=== PATIENT | male | born 1965 | race Caucasian/White ===

== ENCOUNTER → 2017-09-11 | Outpatient (CLI) | payer OTHER ==
[~2017-09-11] MED LIST: BYETTA PEN 51 PENIN1; CIPRO500 MG PO; CIPROFLOXACIN500 M1 PO; COLACE100 MG PO; FLOMAX0.4 MG PO; HYDROCODON-ACE1 EAC7 PO; INVOKANA100 MG PO; KEFLEX500 MG PO; LANTUS SUBQ; LANTUS100 UNIT/M SUBQ; LASIX 40 MG TAB40 M2 PO; LEVSIN0.125 MG PO; LEVSIN0.125 MG SUBLING; LIPITOR10 MG PO; LIPITOR40 MG PO; MAGOX 400400 MG PO; METFORMIN HCL500 MG PO; METOLAZONE 2.52.5 M1 PO; NORCO 5-325 TA1 EACH PO; NOVOLOG100 UNIT/1 SUBQ; NOVOLOG100 UNIT/M SUBQ; PHENAZOPYRIDIN200 M2 PO; POLYMYXIN B/TMP10 ML OP; POTASSIUM20 PO; TRAMADOL 50 MG50 MG PO; VICTOZA0.6 MG/0.1
[2017-09-11 09:36] LABS: MCH 26.1 pg (26.0-34.0); MCHC 33.2 g/dL (28.0-37.0); MCV 78.5 fL (80.0-100.0); MPV 8.4 fl. (7.2-11.1); RBC 5.73 mil/uL (4.50-6.00); RDW-CV 15.4 % (10.5-14.5)
[2017-09-11 09:53] LABS: ALBUMIN 3.6 g/dL (3.4-5.0); ALKALINE PHOSPHATASE 131 U/L (46-116); ANION GAP 6 mmol/L (7-16); BUN 17 mg/dL (7-18); CALCIUM 9.6 mg/dL (8.5-10.1); CHLORIDE 99 mmol/L (98-107); CHOLESTEROL 108 mg/dL (<200); CO2 34 mmol/L (21-32); CREATININE 0.9 mg/dL (0.6-1.3); GLUCOSE 180 mg/dL (70-99); HDL CHOLESTEROL 31 mg/dL (>40); LDL CHOLESTEROL 62 mg/dL (<100); POTASSIUM 3.7 mmol/L (3.5-5.1); SERUM ASSESSMENT Clear; SGOT 20 U/L (15-37); SGPT 51 U/L (30-65); SODIUM 139 mmol/L (136-145); TC:HDL 3.5 Ratio (Not establshd); TOTAL BILIRUBIN 0.8 mg/dL (<0.1-1.0); TOTAL PROTEIN 7.4 g/dL (6.4-8.2); TRIGLYCERIDE 75 mg/dL (<150); VLDL 15 mg/dL (<40)
[2017-09-11 21:11] LABS: GLYCOHEMOGLOBIN (HGB A1C) 7.3 % (4.8-5.6)
== END ==
LOC: M.LAB 08:58
PROVIDERS: General Practice
DX: E11.8 Type 2 diabetes mellitus with unspecified complications (principal); E78.5 Hyperlipidemia, unspecified; N18.9 Chronic kidney disease, unspecified; E55.9 Vitamin D deficiency, unspecified; E11.65 Type 2 diabetes mellitus with hyperglycemia

== ENCOUNTER 2017-09-15 20:38 | Emergency (ER) | payer OTHER ==
[~2017-09-15] VITALS: Ht 182.9 cm; Wt 180.1 kg
[~2017-09-15 20:38] MED LIST changes: -BYETTA PEN 51 PENIN1; -CIPRO500 MG PO; -FLOMAX0.4 MG PO; -HYDROCODON-ACE1 EAC7 PO; -LEVSIN0.125 MG PO; -LEVSIN0.125 MG SUBLING; -PHENAZOPYRIDIN200 M2 PO; -VICTOZA0.6 MG/0.1
[2017-09-15 20:45] VITALS: BP 156/77
[2017-11-11] MEDS ORDERED: VICTOZA0.6 MG/0.1 (09:51)
[2017-11-11] MEDS ORDERED: BYETTA PEN 51 PENIN1 (09:52)
== END 2017-09-15 21:12 | disposition home or self-care (01) ==
LOC: M.ERS 20:38
DX: H11.32 Conjunctival hemorrhage, left eye (principal); E11.9 Type 2 diabetes mellitus without complications; Z90.49 Acquired absence of other specified parts of digestive tract; Z85.038 Personal history of other malignant neoplasm of large intestine; Z79.4 Long term (current) use of insulin

== ENCOUNTER 2017-11-04 06:08 | Inpatient (IN) | payer OTHER ==
[~2017-11-04] VITALS: Ht 182.9 cm; Wt 173.7 kg
[2017-11-04 06:12] VITALS: BP 150/75
[2017-11-04 06:45] LABS: ABSOLUTE BASOPHILS 0.1 thou/uL (0.0-0.2); ABSOLUTE EOSINOPHILS 0.1 thou/uL (0.0-0.7); ABSOLUTE LYMPHOCYTES 1.7 thou/uL (0.8-5.3); ABSOLUTE MONOCYTES 0.8 thou/uL (0.0-1.2); ABSOLUTE NEUTROPHILS 7.8 thou/uL (1.6-8.1); BASOPHILS 0.7 %; EOSINOPHILS 0.9 %; HEMATOCRIT 46.1 % (42.0-52.0); HEMOGLOBIN 15.3 gm/dL (14.0-18.0); LYMPHOCYTES 16.1 %; MCH 26.3 pg (26.0-34.0); MCHC 33.2 g/dL (28.0-37.0); MONOCYTES 7.3 %; MPV 8.5 fl. (7.2-11.1); NUCLEATED RBCS 0 /100WBC; PLATELET COUNT* 286 thou/uL (150-400); RBC 5.84 mil/uL (4.50-6.00); RDW-CV 15.3 % (10.5-14.5); WBC 10.4 thou/uL (4.0-11.0)
[2017-11-04 06:50] LABS: URINE BILIRUBIN NEGATIVE (Negative); URINE BLOOD 3+ (Negative); URINE CLARITY CLOUDY; URINE COLOR RED; URINE GLUCOSE-RANDOM NEGATIVE (Negative); URINE KETONES NEGATIVE (Negative); URINE LEUKOCYTES-REFLEX NEGATIVE (Negative); URINE NITRITE-REFLEX NEGATIVE (Negative); URINE PROTEIN 1+ (Negative); URINE SPECIFIC GRAVITY 1.025 (1.005-1.030); URINE UROBILINOGEN 0.2 E.U./dl (0.2-1.0)
[2017-11-04 06:56] LABS: BACTERIA-REFLEX 1-9 Few /HPF (None Seen); CASTS None Seen /LPF (None Seen); MUCUS None Seen strn/LPF (None Seen); SQUAMOUS 0-3 Few /LPF (0-3); URINE RBC >20 Many /HPF (0-2); URINE WBC-REFLEX 0-5 Rare /HPF (0-5)
[2017-11-04 06:57] LABS: CRYSTALS None Seen /LPF (None Seen)
--- NOTE | 2017-11-04 06:59 | NUR ---
PT BACK FROM CT AT THIS TIME
[2017-11-04 07:12] LABS: CREATININE 0.8 mg/dL (0.6-1.3); POTASSIUM 3.6 mmol/L (3.5-5.1)
[2017-11-04 07:17] LABS: ALBUMIN 3.8 g/dL (3.4-5.0); TOTAL BILIRUBIN 0.6 mg/dL (<0.1-1.0); TOTAL PROTEIN 6.9 g/dL (6.4-8.2)
[2017-11-04 10:44] VITALS: BP 138/69
[2017-11-04 11:00] VITALS: BP 128/68
--- NOTE | 2017-11-04 11:10 | NUR ---
ASSUMED CARE OF PATIENT AT THIS TIME AFTER TRANSFER TO ROOM 103 FROM EMERGENCY DEPARTMENT. PATIENT AWAKE, ALERT, AND ORIENTED APPROPRIATELY. NURSING WILL CONTINUE TO MONITOR.
[2017-11-04 16:02] VITALS: BP 131/68
--- NOTE | 2017-11-04 17:59 | NUR ---
PATIENT HAS REMAINED ALERT AND ORIENTED APPROPRIATELY. GIVEN PRN MEDICATIONS FOR PAIN WELL SCHEDULED MEDICATIONS THIS SHIFT, SEE EMAR FOR DOCUMENTATION. DENIES NEEDS AT THIS TIME. CALL LIGHT WITHIN REACH. NURSING WILL CONTINUE TO MONITOR.
[2017-11-04 20:00] VITALS: BP 119/57
[2017-11-05 05:05] LABS: HEMATOCRIT 41.7 % (42.0-52.0); HEMOGLOBIN 13.9 gm/dL (14.0-18.0); MCH 25.9 pg (26.0-34.0); MCHC 33.2 g/dL (28.0-37.0); MCV 78.1 fL (80.0-100.0); MPV 9.2 fl. (7.2-11.1); RBC 5.34 mil/uL (4.50-6.00); WBC 11.7 thou/uL (4.0-11.0)
--- NOTE | 2017-11-05 05:09 | NUR ---
ASSUMED CARE OF PT AT 1900 ALERT AND ORIENTED X4 VS AND ASSESSMENT STABLE. PT HAD PAIN MEDS TWICE THIS SHIFT AND STAYED UP MOST OF THE NIGHT WATCHING MOVIES ON HIS TABLET. PT DENIED ANY OTHER COMPLAINTS. WILL CONTINUE PLAN OF CARE.
[2017-11-05 05:28] LABS: CALCIUM 8.3 mg/dL (8.5-10.1); CREATININE 1.1 mg/dL (0.6-1.3)
[2017-11-05 07:54] VITALS: BP 122/62
[2017-11-05 10:51] VITALS: BP 122/62
--- NOTE | 2017-11-05 13:20 | NUR ---
ASSUMED CARE OF PATIENT AFTER REPORT THIS MORNING. PATIENT AWAKE, ALERT, AND ORIENTED APPROPRIATELY. PHYSICAL ASSESSMENT COMPLETED AND CHARTED. COMPLAINED OF PAIN. GIVEN PRN AND SCHEDULED MEDICATIONS, SEE EMAR FOR DOCUMENTATION. VITAL SIGNS STABLE. OXYGEN SATURATION WITHIN NORMAL LIMITS ON ROOM AIR. PATIENT IS UP AD BETTY. USES CALL LIGHT APPROPRIATELY. HAS BEEN NPO SINCE MIDNIGHT FOR PROCEDURE WHICH PATIENT IS OFF UNIT FOR AT THIS TIME. NURSING WILL CONTINUE TO MONITOR WHEN PATIENT RETURNS.
--- NOTE | 2017-11-05 14:27 | NUR ---
PATIENT RETURNED TO ROOM AT 1420 FROM PACU. AWAKE, ALERT, AND ORIENTED APPROPRIATELY. COMPLAINING OF CRAMPING TO ABDOMEN. RATES IT 2/10. DENIES NEEDS. USING URINAL. CO2 MONITOR INTACT AND VALUES APPROPRIATE. CALL LIGHT WITHIN REACH. NURSING WILL CONTINUE TO MONITOR.
[2017-11-05] MEDS ORDERED: HYDROCODON-ACE1 EAC7 PO (14:49)
[2017-11-05] MEDS ORDERED: CIPRO500 MG PO (14:49)
[2017-11-05] MEDS ORDERED: PHENAZOPYRIDIN200 M2 PO (14:49)
[2017-11-05] MEDS ORDERED: FLOMAX0.4 MG PO (14:49)
[2017-11-05] MEDS ORDERED: LEVSIN0.125 MG SUBLING (14:49)
[2017-11-05 15:04] VITALS: BP 139/66
--- NOTE | 2017-11-05 15:37 | NUR ---
SHORTLY AFTER RETURNING TO ROOM PATIENT BEGAN COMPLAINING OF NAUSEA AND DRY HEAVING, COMPLAINING OF PAIN TO ABDOMEN. GIVEN PRN IV MEDICATIONS, SEE EMAR FOR DOCUMENTATION. RESTARTED IV FLUIDS TO LEFT AC SPACE. BED ALARM ON. CALL LIGHT WITHIN REACH. CO2 MONITOR INTACT. NURSING WILL CONTINUE TO MONITOR.
--- NOTE | 2017-11-05 17:21 | NUR ---
PATIENT REMAINS ALERT AND ORIENTED APPROPRIATELY. FEELING MUCH BETTER AT THIS TIME. NOT COMPLAINING OF SEVERE PAIN OR NAUSEA ANYMORE. EATING DINNER. WILL START PO PAIN MEDICATIONS. PATIENT STATES HE WANTS TO STAY TONIGHT TO MAKE SURE PAIN STAYS UNDER CONTROL. DENIES NEEDS. CALL LIGHT WITHIN REACH. NURSING WILL CONTINUE TO MONITOR.
[2017-11-05 20:00] VITALS: BP 130/57
[2017-11-06 04:27] LABS: CALCIUM 8.3 mg/dL (8.5-10.1); CREATININE 1.1 mg/dL (0.6-1.3); POTASSIUM 3.6 mmol/L (3.5-5.1)
[2017-11-06 04:34] LABS: HEMATOCRIT 39.1 % (42.0-52.0); MCHC 33.3 g/dL (28.0-37.0); MCV 77.9 fL (80.0-100.0); MPV 8.9 fl. (7.2-11.1); RBC 5.02 mil/uL (4.50-6.00); RDW-CV 15.4 % (10.5-14.5); WBC 11.1 thou/uL (4.0-11.0)
--- NOTE | 2017-11-06 04:53 | NUR ---
PATIENT HAS REMAINED ALERT AND ORIENTED X 4 THROUGHOUT THE SHIFT AND RESTING QUIETLY ON HOURLY ROUNDS. MEDICATED WITH ORAL PAIN MEDS X 2 OVERNIGHT TO GOOD EFFECT. URINE PINK TO RED TINGED WITH SOME CLEARING THIS AM. NO STONES SEEN WITH STRAINING. UP INDEPENDENTLY IN THE ROOM. VITAL SIGNS STABLE. ANTICIPATING DISCHARGE TODAY. CONTINUE TO MONITOR.
[2017-11-06 07:44] VITALS: BP 127/55
[2017-11-06 09:34] VITALS: BP 127/55
[2017-11-06] MEDS ORDERED: LEVSIN0.125 MG PO (10:17)
--- NOTE | 2017-11-06 11:35 | NUR ---
ASSUMED CARE OF PATIENT AFTER MORNING REPORT. ALERT AND ORIENTED X4. ASSESSMENT COMPLETED AND CHARTED. VSS ON ROOM AIR. PATIENT HAD NO COMPLAINTS OF PAIN OR NAUSEA. FLUIDS AND ANTIBIOTICS INFUSED ORDERED. PATIENT DISCHARGED AT 1125. ALL PERSONAL BELONGINGS LEFT WITH PATIENT. PRESCRIPTIONS AND SICHARGE INFORMATION SENT WITH PATIENT UPON DISCHARGE.
--- NOTE | 2017-11-06 15:50 | CON ---
[address] [address] CONSULTATION Name: IKER HAYWOOD Room: [address]#: [id number] Admission: 11/04/17 Attend Phys: Carmen Thompson MD Discharge: 11/06/17 Date of : 65 Report #: [id number] THIS REPORT FOR: //name// CC: Carmen Bonilla DATE OF SERVICE: 11/04/2017 REASON FOR CONSULTATION: Left ureteral stone. HISTORY OF PRESENT ILLNESS: The patient is a 52-year-old male who presented to the Emergency Room today with severe left flank pain that began this morning. He has no history of prior stones. He denies any dysuria, hematuria or fever. He denies any nausea or vomiting. PAST MEDICAL HISTORY: Includes colon cancer, diabetes, small-bowel obstruction. PAST SURGICAL HISTORY: Includes colectomy for colon cancer, cholecystectomy, appendectomy. FAMILY HISTORY: Noncontributory. SOCIAL HISTORY: The patient has never smoked, drank or done drugs. 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 ALLERGIES: None. MEDICATIONS AT HOME: Metformin, potassium chloride, Lasix, docusate, insulin, metolazone and atorvastatin. Inpatient medication record is reviewed. REVIEW OF SYSTEMS: A 12-point review of systems was performed and is negative except as noted above in HPI. PHYSICAL EXAMINATION: VITAL SIGNS: Temperature is 36.6. He has been afebrile since admission, pulse is 80, blood pressure is 131/68, respirations 16. GENERAL: He is a well-developed, well-nourished, morbidly obese male in no acute distress. He is alert and oriented. HEENT: Normocephalic, atraumatic. RESPIRATIONS: Unlabored. HEART: Regular. ABDOMEN: Soft, nontender, nondistended. BACK: He has no CVA tenderness. GENITOURINARY: He has normal phallus and testicles. Meatus is normal. EXTREMITIES: [place] [address] CONSULTATION Name: IKER HAYWOOD Room: [address]#: [id number] Admission: 11/04/17 Attend Phys: Carmen Thompson MD Discharge: 11/06/17 Date of : 65 Report #: [id number] LABORATORY DATA: White count 10.4, hemoglobin 15.3, platelets 286. BMP is normal with a creatinine of 0.8. Urinalysis showed protein, blood but was negative for leukocyte esterase, negative for nitrites. CT scan was reviewed and this revealed a proximal left ureteral stone causing mild hydronephrosis. They read this is 5 mm. I think it is probably a little smaller than that. ASSESSMENT AND PLAN: Left proximal ureteral stone. Options were discussed with the patient including medical expulsive therapy, outpatient extracorporeal shockwave lithotripsy or ureteroscopy. The patient says he is continuing to have pain tonight. Plan will be to make him n.p.o. after midnight and in the morning, we will decide if he wants to proceed with ureteroscopy, laser lithotripsy depending on his pain status. If his pain is controlled, he could theoretically be discharged home for trial of passage with Flomax and a strainer as well as pain meds. <ELECTRONICALLY SIGNED> By: Julee Chen MD 11/06/17 1550 1740 1943Julee Chen MD /nt
--- NOTE | 2017-11-06 15:52 | OP ---
[facility] [address] [place] [address] OPERATIVE REPORT Name: IKER HAYWOOD Room: [address]#: [id number] Admission: 11/04/17 Attend Phys: Carmen Thompson MD Discharge: 11/06/17 Date of : 65 Report #: [id number] THIS REPORT FOR: //name// CC: Carmen Bonilla DATE OF SERVICE: 11/05/2017 PREOPERATIVE DIAGNOSIS: Left proximal ureteral stone. POSTOPERATIVE DIAGNOSIS: Left proximal ureteral stone. PROCEDURES: Cystourethroscopy, left retrograde pyelogram, left ureteroscopy and left ureteral stent placement (6 x 28). SURGEON: Julee Chen M.D. ANESTHESIA: General. ESTIMATED BLOOD LOSS: None. COMPLICATIONS: None. SPECIMENS: None. INDICATION FOR PROCEDURE: The patient is a 52-year-old male who presented with a left 4-5 mm proximal stone. He has been unable to get his pain under control and therefore opted to proceed with ureteroscopy. He does understand the risks of procedure including but not limited to infection, bleeding, injury to the urethra, bladder, ureter, need for secondary procedures, stent pain, cardiopulmonary complications. He voiced understanding and wishes to proceed. DESCRIPTION OF PROCEDURE: After informed consent was obtained, the patient was taken to the operating suite and placed supine. After induction of general anesthesia, he was placed in dorsal lithotomy position, genitalia prepped and draped in standard fashion. Rigid cystoscopy was attempted, but his meatus would not accommodate the scope. Therefore, he was serially dilated from 16 to 24 Israeli with the Mami's without difficulty and the scope was able to be placed. The urethra was normal. There were no strictures. Prostate was nonobstructing. Due to his large body habitus, the angle of the scope had to be quite steep to make it into the bladder. Pancystoscopy was performed with the 70-degree lens. There were no lesions or tumors. Ureteral orifices were orthotopic in position. His left UO was fairly small. Retrograde was performed on the left side with cone tip. This revealed stone in the proximal ureter. The proximal portion of the ureter was quite narrow compared to the mid to distal portion, which was much wider. A sensor wire was placed [place] [address] OPERATIVE REPORT Name: IKER HAYWOOD Room: [address]#: [id number] Admission: 11/04/17 Attend Phys: Carmen Thompson MD Discharge: 11/06/17 Date of : 65 Report #: [id number] ureter and passed the stone without much difficulty, but I could feel this wire passing the stone in the proximal ureter. The bladder was drained, the scope was removed. Using dual lumen catheter, a second wire was placed. I attempted to thread the 07/07 ureteral access sheath over one of the wires, but this would not pass the level of the distal ureter just inside the UO without resistance and therefore, this was aborted. I attempted to thread the 11-Israeli portion to see if that would dilate any better, but same problem was encountered and therefore that was aborted. I did go ahead and thread the flexible ureteroscope over one of the wires to see if there was a stricture and it did appear that although I was able to get the scope past the area where the sheath was getting hung up in the mid ureter upwards, there was a pretty narrow segment of ureter and it would not allow passage of the ureteroscope. Therefore, this was aborted and we will have to place a stent and come back. The scope was backed out leaving the sensor wire in place and a second wire was removed when the ureteroscope was removed. The dual lumen was again passed over and retrograde was performed again to delineate the collecting system for stent placement. This revealed some very mild hydronephrosis. This wire was backloaded through the cystoscope. A 6-Israeli x 28 cm double-J stent was threaded over the wire. This passed easily with the exception of the area of the stone where some mild resistance was encountered, but overall the stent passed without much difficulty. Good curl was seen within the upper pole and good curl was seen within the bladder under direct visualization. The bladder was then drained and the scope was removed. A 5 mL of lidocaine jelly were placed per urethra for local anesthesia. He was awoken, extubated and taken to recovery in satisfactory condition. He will be admitted back to the floor and can be dismissed home later today. If his pain is under control, plan will be to revisit with ureteroscopy in a week or 2 after he has dilated with the stent. <ELECTRONICALLY SIGNED> By: Julee Chen MD 11/06/17 1552 1340 1403Julee Chen MD /nt
[2017-11-11] MEDS ORDERED: VICTOZA0.6 MG/0.1 (09:51)
[2017-11-11] MEDS ORDERED: BYETTA PEN 51 PENIN1 (09:52)
== END 2017-11-06 11:25 | disposition home or self-care (01) | DRG 694 ==
LOC: M.ERS 06:08 → M.TBA-ER 09:40 → M.ORTHSURG 09:40
PROVIDERS: Emergency Medicine; ADMIT Internal Medicine
PROC: BT1F1ZZ Fluoroscopy of Left Kidney, Ureter and Bladder using Low Osmolar Contrast (ICD-10-PCS; principal; 2017-11-05)
PROC: 0T778DZ Dilation of Left Ureter with Intraluminal Device, Via Natural or Artificial Opening Endoscopic (ICD-10-PCS; principal; 2017-11-05)
DX: N20.2 Calculus of kidney with calculus of ureter (principal); N39.0 Urinary tract infection, site not specified; N13.5 Crossing vessel and stricture of ureter without hydronephrosis; E11.9 Type 2 diabetes mellitus without complications; I10 Essential (primary) hypertension; Z79.4 Long term (current) use of insulin; Z90.49 Acquired absence of other specified parts of digestive tract; Z85.038 Personal history of other malignant neoplasm of large intestine; Z83.3 Family history of diabetes mellitus; Z79.899 Other long term (current) drug therapy

== ENCOUNTER → 2017-11-19 | Day surgery (SDC) | payer OTHER ==
[~2017-11-19] MED LIST changes: +BYETTA PEN 51 PENIN1; +CIPRO500 MG PO; +FLOMAX0.4 MG PO; +HYDROCODON-ACE1 EAC7 PO; +LEVSIN0.125 MG PO; +LEVSIN0.125 MG SUBLING; +PHENAZOPYRIDIN200 M2 PO; +VICTOZA0.6 MG/0.1
--- NOTE | 2017-11-19 16:24 | EKG ---
[place] [address] ELECTROCARDIOGRAM REPORT Name: IKER HAYWOOD Room: [facility]#: [id number] Admission: 11/19/17 Attend Phys: Julee Chen, Discharge: Date of : 65 Report #: [id number] THIS REPORT FOR: //name// [facility] Test Date: 2017-11-19 Test Time: 10:50:25 Pat Name: IKER ALMODOVARGADO Department: Room: Gender: M [employer] Manager: : 1965 Requested By: Alfredo Bonilla Order Number: [id number] Devonte MD: Gabriel Villalobos Measurements Intervals [place] Rate: 79 P: 22 [place]: 161 QRS: 52 QRSD: 100 T: 49 QT: 364 QTc: 418 Interpretive Statements Sinus rhythm Abnormal R-wave progression, early transition Inferior infarct, old possible Minimal ST elevation, anterior leads Compared to ECG 05/16/2017 17:14:15 ST (T wave) deviation now present Myocardial infarct finding still present Electronically Signed On 11-19-2017 16:24:05 CDT by Gabriel Villalobos [email or web address] <ELECTRONICALLY SIGNED> By: Gabriel Villalobos MD, [facility] 11/19/17 1624 1050 1050 Gabriel Villalobos MD, [facility] /EPI
--- NOTE | 2017-11-26 11:57 | OP ---
[address] [address] OPERATIVE REPORT Name: IKER HAYWOOD Room: [facility]#: [id number] Admission: 11/19/17 Attend Phys: Julee Chen, Discharge: Date of : 65 Report #: [id number] THIS REPORT FOR: //name// CC: [facility] Julee Loo Irene DATE OF SERVICE: 11/19/2017 PREOPERATIVE DIAGNOSIS: Left proximal ureteral stone. POSTOPERATIVE DIAGNOSIS: Left proximal ureteral stone. PROCEDURE: Cystourethroscopy, left retrograde pyelogram, left ureteral stent removal, left ureteroscopy, laser lithotripsy, basket extraction of stone and left ureteral stent replacement (6 Dominican x 28 cm). SURGEON: Julee Chen MD ANESTHESIA: General. ESTIMATED BLOOD LOSS: None. COMPLICATIONS: None. SPECIMEN: Stone. INDICATIONS FOR PROCEDURE: The patient is a 52-year-old male who underwent attempted left ureteroscopy for a 5 mm proximal stone a couple of weeks ago. He had some distal ureteral stricture that would not allow passage of the sheath. Therefore, he was stented and now presents a couple of weeks later to retrieve the stone after being allowed to dilate with the stent. Risks of the procedure were discussed including but not limited to infection, bleeding, injury to the urethra, bladder or ureter, need for secondary procedures, stenting, cardiopulmonary complications. He voiced understanding and wished to proceed. DESCRIPTION OF PROCEDURE: After informed consent was obtained, the patient was taken back to the operating suite and placed supine. After induction of general anesthesia, he was placed in dorsal lithotomy position, genitalia prepped and draped in standard fashion. Attempted to place the 22-Dominican cystoscope in the meatus, but he had a fossa narrowing similar to last time. This required dilation with Sebastian sounds serially from 16-Dominican to 24-Dominican. I was then able to place the 22-Dominican cystoscope. This was advanced into the urethra, which appeared normal. The prostate was nonobstructing. He had a very steep angle at the bladder neck to get into the bladder due to his anatomy and body habitus. The stent was seen protruding from the left UO[place] [address] OPERATIVE REPORT Name: IKER HAYWOOD Room: [facility]#: [id number] Admission: 11/19/17 Attend Phys: Julee Chen, Discharge: Date of : 65 Report #: [id number] at the meatus and a sensor wire was threaded up into the kidney and stent was removed. Dual lumen catheter was used to perform retrograde and this revealed likely still the stone was in the proximal ureter. A second wire was placed. Using the 07/07 ureteral access sheath, this was threaded over one of the wires to the level of the mid ureter without difficulty at this time. The flexible ureteroscope was advanced up through the sheath and the stone was encountered in the proximal ureter with a significant inflammatory response and edema around the stone. This was lasered into 2 pieces with 200 holmium laser fiber and these were basketed and removed with 0 tip nitinol basket. All calices were then inspected carefully for any remaining stone fragments and there were none. The scope was backed out along with the sheath under direct visualization. There was no injury from the sheath. Retrograde was again performed to delineate the collecting system for stent placement and there was no hydro or extravasation. He still had a pretty significant narrowed proximal ureter with the mid portion more dilated. The wire was backloaded to the cystoscope and a 6-Dominican x 28 cm double-J stent was threaded over the wire. Curl was left in the upper pole as the renal pelvis was quite small and would not accommodate the stent curl most likely. Good curl was seen within the bladder. The bladder was then drained and the scope was removed and 5 mL of lidocaine jelly were placed per urethra for local anesthesia. He was awoken, extubated and taken to recovery in satisfactory condition. He will be dismissed home and follow up with me in a week for stent removal. <ELECTRONICALLY SIGNED> By: Julee Chen MD 11/26/17 1157 1413 1523Julee Chen MD /nt
[2017-11-28 19:07] LABS: STONE CA OXALATE DIHYDRATE 10 % (()); STONE CA OXALATE MONOHYDRATE 88 % (()); STONE COLOR Brown (()); STONE WEIGHT 27.7 mg (())
== END | disposition home or self-care (01) ==
LOC: M.SUR 09:55
PROVIDERS: Urology
DX: N20.1 Calculus of ureter (principal); E11.9 Type 2 diabetes mellitus without complications; Z79.899 Other long term (current) drug therapy; Z79.891 Long term (current) use of opiate analgesic; Z79.4 Long term (current) use of insulin; Z98.890 Other specified postprocedural states

== ENCOUNTER → 2018-03-10 | Outpatient (CLI) | payer OTHER ==
[2018-03-10 10:03] LABS: URINE BILIRUBIN NEGATIVE (Negative); URINE BLOOD NEGATIVE (Negative); URINE CLARITY CLEAR; URINE COLOR YELLOW; URINE GLUCOSE-RANDOM 2+ (Negative); URINE KETONES NEGATIVE (Negative); URINE LEUKOCYTES NEGATIVE (Negative); URINE NITRITE NEGATIVE (Negative); URINE PROTEIN TRACE (Negative); URINE SPECIFIC GRAVITY 1.025 (1.005-1.030)
[2018-03-10 10:03] LABS: HEMATOCRIT 40.7 % (42.0-52.0); HEMOGLOBIN 13.5 gm/dL (14.0-18.0); MCH 26.3 pg (26.0-34.0); MCHC 33.1 g/dL (28.0-37.0); MCV 79.5 fL (80.0-100.0); MPV 8.1 fl. (7.2-11.1); RBC 5.12 mil/uL (4.50-6.00); RDW-CV 15.2 % (10.5-14.5)
[2018-03-10 10:17] LABS: ALBUMIN 3.1 g/dL (3.4-5.0); ALKALINE PHOSPHATASE 123 U/L (46-116); ANION GAP 5 mmol/L (7-16); BUN 10 mg/dL (7-18); CHLORIDE 107 mmol/L (98-107); CHOLESTEROL 113 mg/dL (<200); CO2 29 mmol/L (21-32); CREATININE 0.7 mg/dL (0.6-1.3); GLUCOSE 166 mg/dL (70-99); HDL CHOLESTEROL 28 mg/dL (>40); LDL CHOLESTEROL 72 mg/dL (<100); POTASSIUM 4.3 mmol/L (3.5-5.1); SGOT 17 U/L (15-37); SGPT 45 U/L (30-65); SODIUM 141 mmol/L (136-145); TOTAL BILIRUBIN 0.4 mg/dL (<0.1-1.0); TRIGLYCERIDE 67 mg/dL (<150); VLDL 13 mg/dL (<40)
[2018-03-10 10:18] LABS: SERUM ASSESSMENT Clear
[2018-03-11 06:07] LABS: GLYCOHEMOGLOBIN (HGB A1C) 7.4 % (4.8-5.6)
== END ==
LOC: M.LAB 09:45
PROVIDERS: Nurse Practitioner Family
DX: Z00.01 Encounter for general adult medical examination with abnormal findings (principal); E11.8 Type 2 diabetes mellitus with unspecified complications; E55.9 Vitamin D deficiency, unspecified

== ENCOUNTER → 2018-07-21 | Outpatient (CLI) | payer OTHER | LOC: M.WC 08:42 | DX: E11.622 Type 2 diabetes mellitus with other skin ulcer (principal); L97.811 Non-pressure chronic ulcer of other part of right lower leg limited to breakdown of skin; E66.01 Morbid (severe) obesity due to excess calories; E66.9 Obesity, unspecified; I87.2 Venous insufficiency (chronic) (peripheral); I89.0 Lymphedema, not elsewhere classified; I10 Essential (primary) hypertension; Z68.43 Body mass index [BMI] 50.0-59.9, adult; Z79.4 Long term (current) use of insulin; Z85.038 Personal history of other malignant neoplasm of large intestine ==

== ENCOUNTER → 2018-07-28 | Outpatient (CLI) | payer OTHER | LOC: M.WC 05:16 | DX: E11.622 Type 2 diabetes mellitus with other skin ulcer (principal); L97.211 Non-pressure chronic ulcer of right calf limited to breakdown of skin; E66.01 Morbid (severe) obesity due to excess calories; I87.2 Venous insufficiency (chronic) (peripheral); I89.0 Lymphedema, not elsewhere classified; I10 Essential (primary) hypertension; Z85.038 Personal history of other malignant neoplasm of large intestine; Z68.43 Body mass index [BMI] 50.0-59.9, adult ==

== ENCOUNTER → 2018-08-04 | Outpatient (CLI) | payer OTHER | LOC: M.WC 04:43 | DX: E11.622 Type 2 diabetes mellitus with other skin ulcer (principal); L97.212 Non-pressure chronic ulcer of right calf with fat layer exposed; E66.01 Morbid (severe) obesity due to excess calories; I87.2 Venous insufficiency (chronic) (peripheral); I89.0 Lymphedema, not elsewhere classified; I10 Essential (primary) hypertension; Z85.038 Personal history of other malignant neoplasm of large intestine; Z68.43 Body mass index [BMI] 50.0-59.9, adult ==

== ENCOUNTER → 2018-08-11 | Outpatient (CLI) | payer OTHER | LOC: M.WC 11:00 | DX: E11.622 Type 2 diabetes mellitus with other skin ulcer (principal); L97.218 Non-pressure chronic ulcer of right calf with other specified severity; E66.01 Morbid (severe) obesity due to excess calories; I87.2 Venous insufficiency (chronic) (peripheral); I89.0 Lymphedema, not elsewhere classified; I10 Essential (primary) hypertension; Z85.038 Personal history of other malignant neoplasm of large intestine; Z68.43 Body mass index [BMI] 50.0-59.9, adult ==

== ENCOUNTER → 2018-08-12 | Outpatient (CLI) | payer OTHER ==
[2018-08-12 09:52] LABS: ABSOLUTE BASOPHILS 0.1 thou/uL (0.0-0.2); ABSOLUTE EOSINOPHILS 0.1 thou/uL (0.0-0.7); ABSOLUTE LYMPHOCYTES 1.5 thou/uL (0.8-5.3); ABSOLUTE MONOCYTES 0.5 thou/uL (0.0-1.2); ABSOLUTE NEUTROPHILS 5.8 thou/uL (1.6-8.1); BASOPHILS 0.8 %; EOSINOPHILS 1.7 %; HEMATOCRIT 43.5 % (42.0-52.0); HEMOGLOBIN 14.3 gm/dL (14.0-18.0); LYMPHOCYTES 18.8 %; MCH 26.2 pg (26.0-34.0); MCV 79.4 fL (80.0-100.0); MONOCYTES 6.3 %; MPV 8.2 fl. (7.2-11.1); NUCLEATED RBCS 0 /100WBC; PLATELET COUNT* 265 thou/uL (150-400); POLYS 72.4 %; RBC 5.48 mil/uL (4.50-6.00); RDW-CV 15.1 % (10.5-14.5); WBC 8.1 thou/uL (4.0-11.0)
[2018-08-12 10:31] LABS: ALBUMIN 3.4 g/dL (3.4-5.0); ALKALINE PHOSPHATASE 143 U/L (46-116); ANION GAP 7 mmol/L (7-16); BUN 13 mg/dL (7-18); CALCIUM 9.3 mg/dL (8.5-10.1); CHLORIDE 101 mmol/L (98-107); CHOLESTEROL 107 mg/dL (<200); CO2 31 mmol/L (21-32); CREATININE 0.8 mg/dL (0.6-1.3); GLUCOSE 217 mg/dL (70-99); HDL CHOLESTEROL 30 mg/dL (>40); LDL CHOLESTEROL 62 mg/dL (<100); POTASSIUM 4.7 mmol/L (3.5-5.1); SGOT 17 U/L (15-37); SGPT 51 U/L (30-65); SODIUM 139 mmol/L (136-145); TC:HDL 3.6 Ratio (Not establshd); TOTAL BILIRUBIN 0.5 mg/dL (<0.1-1.0); TRIGLYCERIDE 75 mg/dL (<150); VLDL 15 mg/dL (<40)
[2018-08-12 10:33] LABS: SERUM ASSESSMENT Clear
[2018-08-12 21:07] LABS: GLYCOHEMOGLOBIN (HGB A1C) 8.6 % (4.8-5.6)
== END ==
LOC: M.LAB 09:29
PROVIDERS: Family Medicine
DX: Z00.01 Encounter for general adult medical examination with abnormal findings (principal); E11.65 Type 2 diabetes mellitus with hyperglycemia; I87.2 Venous insufficiency (chronic) (peripheral); I89.0 Lymphedema, not elsewhere classified; D50.8 Other iron deficiency anemias; E55.9 Vitamin D deficiency, unspecified; Z85.038 Personal history of other malignant neoplasm of large intestine

== ENCOUNTER → 2019-01-12 | Outpatient (CLI) | payer OTHER ==
[2019-01-12 10:42] LABS: % SATURATION 12 % (20-39); IRON 41 ug/dL (50-175)
== END ==
LOC: M.LAB 10:08
PROVIDERS: Nurse Practitioner Family
DX: D50.8 Other iron deficiency anemias (principal)

== ENCOUNTER → 2019-02-01 | Outpatient (CLI) | payer OTHER ==
[2019-02-01 14:50] LABS: % SATURATION 13 % (20-39); IRON 43 ug/dL (50-175)
== END ==
LOC: M.LAB 13:51
PROVIDERS: Nurse Practitioner Family
DX: D50.8 Other iron deficiency anemias (principal)

== ENCOUNTER → 2019-03-25 | Outpatient (CLI) | payer OTHER ==
[2019-03-25 11:04] LABS: % SATURATION 11 % (20-39); IRON 33 ug/dL (50-175)
== END ==
LOC: M.LAB 10:04
PROVIDERS: Internal Medicine Gastroenterology
DX: D50.9 Iron deficiency anemia, unspecified (principal)

== ENCOUNTER → 2019-04-13 | Day surgery (SDC) | payer OTHER ==
[~2019-04-13] MED LIST changes: +BYDUREON P2 MG/0.65 SUBQ
--- NOTE | ~2019-04-13 | PROC ---
[address] [address] PROCEDURE REPORT Name: IKER HAYWOOD Room: [facility]..#: [id number] Admission: 04/13/19 Attend Phys: Mumtaz Torres MD Discharge: Date of : 65 Report #: [id number] THIS REPORT FOR: //name// For GI report, please see the Provation report in Perceptive 7 content. By: 0648Medical Records Staff RY /LUCIAN
[2019-04-13 08:21] LABS: CALCIUM 8.9 mg/dL (8.5-10.1); CREATININE 0.8 mg/dL (0.6-1.3); HEMATOCRIT 44.6 % (42.0-52.0); MCH 26.6 pg (26.0-34.0); MCHC 33.6 g/dL (28.0-37.0); MCV 79.3 fL (80.0-100.0); MPV 8.1 fl. (7.2-11.1); POTASSIUM 3.3 mmol/L (3.5-5.1); RBC 5.62 mil/uL (4.50-6.00); RDW-CV 15.1 % (10.5-14.5); WBC 7.1 thou/uL (4.0-11.0)
[2019-04-13 08:26] LABS: ALBUMIN 3.5 g/dL (3.4-5.0); TOTAL BILIRUBIN 1.2 mg/dL (<0.1-1.0); TOTAL PROTEIN 6.9 g/dL (6.4-8.2)
--- NOTE | 2019-04-14 17:06 | PATH ---
[address] [address] PATHOLOGY RPT PROCEDURE Name: L[address] Room: [facility].#: [id number] Admission: 04/13/19 Date of : 65 Discharge: Report #: [id number] Path Case #: [id number] [facility] Accession Number: [id number] . 01 Material submitted: . PART A: duodenum - DUODENAL BIOPSY PART B: esophagus - ESOPHAGEAL BIOPSY PART C: colon - TRANSVERSE COLON POLYP. Modifiers: transverse PART D: colon - DESCENDING COLON POLYP. Modifiers: descending . 01 Clinician provided ICD-10: D50.9 . 01 Clinical history: . Iron deficiency anemia, FX HX colon cancer . 02 Diagnosis: A. Duodenal biopsy: - Normal small intestinal/duodenal mucosa. . B. Esophageal biopsy: - Benign esophageal and gastric/columnar types mucosa with moderate chronic inflammation typical of reflux, negative for goblet cells/diagnostic Flores's metaplasia and dysplasia. . C. Transverse colon polyp (x 2): - Multiple fragments of tubular adenoma(s), negative for high grade dysplasia. . D. Descending colon polyp: - Most consistent with serrated adenoma, negative for high grade dysplasia. - Fragment of benign squamous epithelium with mild chronic inflammation. See comment. LBQ/04/14/2019 . 02 Comment: The fragment of squamous epithelium identified in specimen D could represent "carry over" from the esophageal biopsy. (BAILEY/db; 04/14/2019) . 02 Electronically signed: . Mykel Benavides MD, Pathologist NPI- [id number] . 01 Gross description: . A. Received in formalin labeled "Lane Laughlin, duodenal biopsy for celiac," are 2 segments of anderson soft tissue measuring 0.9 x 0.2 x 0.2 [place] [address] PATHOLOGY RPT PROCEDURE Name: L[address] Room: [facility]#: [id number] Admission: 04/13/19 Date of : 65 Discharge: Report #: [id number] Path Case #: [id number] aggregate dimensions and ranging from 0.4 to 0.5 cm in maximum dimension. The specimen is submitted entirely in cassette A1. . B. Received in formalin labeled "Lane Laughlin, esophageal biopsy for Flores's," is a single segment of anderson soft tissue measuring 0.3 cm in maximum dimension. The specimen is entirely submitted in cassette B1. . C. Received in formalin labeled "Lane Laughlin, transverse colon polyp x2," are 3 segments of anderson soft tissue measuring 1.1 x 0.9 x 0.3 cm in aggregate dimensions and ranging from 0.4 to 0.5 cm in maximum dimension. The specimen is submitted entirely in cassette C1. . D. Received in formalin labeled "Lane Laughlin, descending colon polyp," are 2 segments of anderson soft tissue measuring 0.6 x 0.2 x 0.1 cm in aggregate dimensions and measuring 0.3 cm each in maximum dimension. The specimen is submitted entirely in cassette D1. (TSD; 04/13/2019) TOB/TOB . 02 Pathologist provided ICD-10: K20.9, D12.3, D12.4, K52.9, D50.9, Z80.0 . 02 CPT . 372080, 323594, 622325, 080619 Specimen Comment: A courtesy copy of this report has been sent to Specimen Comment: [phone], . Specimen Comment: Report sent to / DR SHAH Performed at: [address], [place], [place] [id number] MD Drake Ward MD Phone: [phone] Performed at: [facility] [address], [place], [place] [id number] MD Mykel Benavides MD Phone: [phone]
== END | disposition home or self-care (01) ==
LOC: M.SUR 07:45
PROVIDERS: Internal Medicine Gastroenterology
DX: D12.4 Benign neoplasm of descending colon (principal); D12.3 Benign neoplasm of transverse colon; K52.9 Noninfective gastroenteritis and colitis, unspecified; K20.9 Esophagitis, unspecified; I10 Essential (primary) hypertension; E11.9 Type 2 diabetes mellitus without complications; E78.5 Hyperlipidemia, unspecified; Z98.0 Intestinal bypass and anastomosis status; Z85.038 Personal history of other malignant neoplasm of large intestine; Z87.442 Personal history of urinary calculi; Z90.49 Acquired absence of other specified parts of digestive tract; Z98.890 Other specified postprocedural states; Z79.899 Other long term (current) drug therapy; Z80.0 Family history of malignant neoplasm of digestive organs; Z79.4 Long term (current) use of insulin

== ENCOUNTER 2019-05-01 08:30 | Emergency (ER) | payer OTHER ==
[~2019-05-01] VITALS: Ht 182.9 cm; Wt 181.4 kg
[2019-05-01 09:05] LABS: ABSOLUTE BASOPHILS 0.1 thou/uL (0.0-0.2); ABSOLUTE EOSINOPHILS 0.1 thou/uL (0.0-0.7); ABSOLUTE LYMPHOCYTES 1.3 thou/uL (0.8-5.3); ABSOLUTE MONOCYTES 0.6 thou/uL (0.0-1.2); ABSOLUTE NEUTROPHILS 5.9 thou/uL (1.6-8.1); BASOPHILS 0.9 %; EOSINOPHILS 1.1 %; HEMATOCRIT 47.4 % (42.0-52.0); LYMPHOCYTES 16.2 %; MCH 26.9 pg (26.0-34.0); MCHC 33.7 g/dL (28.0-37.0); MCV 79.6 fL (80.0-100.0); MONOCYTES 7.7 %; MPV 8.1 fl. (7.2-11.1); NUCLEATED RBCS 0 /100WBC; PLATELET COUNT* 251 thou/uL (150-400); POLYS 74.1 %; RBC 5.95 mil/uL (4.50-6.00); WBC 7.9 thou/uL (4.0-11.0)
[2019-05-01 09:17] LABS: ANION GAP 4 mmol/L (7-16); BUN 15 mg/dL (7-18); CALCIUM 9.1 mg/dL (8.5-10.1); CHLORIDE 99 mmol/L (98-107); CO2 33 mmol/L (21-32); CREATININE 0.8 mg/dL (0.6-1.3); GLUCOSE 315 mg/dL (70-99); POTASSIUM 3.7 mmol/L (3.5-5.1); SODIUM 136 mmol/L (136-145)
[2019-05-01 09:27] LABS: ALBUMIN 3.5 g/dL (3.4-5.0); ALKALINE PHOSPHATASE 148 U/L (46-116); NT-PRO BRAIN NAT PEPTIDE 6 pg/mL (<300); SGOT 19 U/L (15-37); SGPT 64 U/L (30-65); TOTAL BILIRUBIN 0.5 mg/dL (<0.1-1.0); TOTAL PROTEIN 6.9 g/dL (6.4-8.2); TROPONIN-I LEVEL <0.06 ng/mL (<0.06)
[2019-05-01 09:53] VITALS: BP 121/66
--- NOTE | 2019-05-02 11:14 | EKG ---
[place] [address] ELECTROCARDIOGRAM REPORT Name: IKER HAYWOOD Room: [facility]#: [id number] Admission: 05/01/19 Attend Phys: Discharge: 05/01/19 Date of : 65 Report #: [id number] THIS REPORT FOR: //name// [facility] ED Test Date: 2019-05-01 Test Time: 08:51:17 Pat Name: IKER HAYWOOD Department: Room: Gender: M Clinical Review Specialist: ANGELA : 1965 Requested By: Ant Colbert Order Number: [id number] MD: Asher Sotomayor Measurements Intervals [place] Rate: 88 P: 24 [place]: 165 QRS: 59 QRSD: 101 T: 30 QT: 341 QTc: 413 Interpretive Statements Sinus rhythm Inferior infarct, old Compared to ECG 11/19/2017 10:50:25 ST (T wave) deviation no longer present Myocardial infarct finding still present Electronically Signed On 05-02-2019 11:14:18 CDT by Asher Sotomayor [email or web address] <ELECTRONICALLY SIGNED> By: Toribio Sotomayor MD, [facility] 05/02/19 1114 0851 0851 Toribio Sotomayor MD, [facility] /EPI
== END 2019-05-01 09:54 | disposition home or self-care (01) ==
LOC: M.ERS 08:30
PROVIDERS: Family Medicine
DX: R53.1 Weakness (principal); E11.9 Type 2 diabetes mellitus without complications; Z79.4 Long term (current) use of insulin; Z90.49 Acquired absence of other specified parts of digestive tract; Z85.038 Personal history of other malignant neoplasm of large intestine

== ENCOUNTER 2020-02-21 09:58 | Emergency (ER) | payer OTHER ==
[~2020-02-21] VITALS: Ht 182.9 cm; Wt 179.2 kg
[2020-02-21] MEDS ORDERED: KEFLEX500 M1 PO ×2 (10:21→10:26)
[2020-02-21 10:37] VITALS: BP 176/68
== END 2020-02-21 10:37 | disposition home or self-care (01) ==
LOC: M.ERS 09:58
DX: I83.891 Varicose veins of right lower extremity with other complications (principal); E11.9 Type 2 diabetes mellitus without complications; Z90.49 Acquired absence of other specified parts of digestive tract; Z79.4 Long term (current) use of insulin; Z85.038 Personal history of other malignant neoplasm of large intestine

== ENCOUNTER → 2020-03-10 | Outpatient (CLI) | payer OTHER ==
[~2020-03-10] MED LIST changes: +KEFLEX500 M1 PO
== END ==
LOC: M.WC 08:55
PROVIDERS: ATTEND Family Medicine
DX: I87.303 Chronic venous hypertension (idiopathic) without complications of bilateral lower extremity (principal); E11.65 Type 2 diabetes mellitus with hyperglycemia; I89.0 Lymphedema, not elsewhere classified; Z85.038 Personal history of other malignant neoplasm of large intestine; E66.01 Morbid (severe) obesity due to excess calories; Z79.4 Long term (current) use of insulin; Z68.43 Body mass index [BMI] 50.0-59.9, adult; Z90.49 Acquired absence of other specified parts of digestive tract

== ENCOUNTER 2021-01-04 06:35 | Emergency (ER) | payer OTHER ==
[~2021-01-04] VITALS: Ht 182.9 cm; Wt 180.5 kg
[2021-01-04] MEDS ORDERED: CEPHALEXIN500 MG PO (07:45)
[2021-01-04 07:56] VITALS: BP 156/69
== END 2021-01-04 07:57 | disposition home or self-care (01) ==
LOC: M.ERS 06:35
DX: L03.012 Cellulitis of left finger (principal); E11.9 Type 2 diabetes mellitus without complications; Z79.899 Other long term (current) drug therapy; Z90.49 Acquired absence of other specified parts of digestive tract; Z85.038 Personal history of other malignant neoplasm of large intestine

== ENCOUNTER 2021-02-15 16:11 | Emergency (ER) | payer OTHER ==
[~2021-02-15] VITALS: Ht 182.9 cm; Wt 178.7 kg
[~2021-02-15 16:11] MED LIST changes: +CEPHALEXIN500 MG PO
[2021-02-15 17:40] VITALS: BP 115/65
== END 2021-02-15 17:41 | disposition home or self-care (01) ==
LOC: M.ERS 16:11
DX: I83.92 Asymptomatic varicose veins of left lower extremity (principal); M79.662 Pain in left lower leg

== ENCOUNTER 2021-03-04 10:39 | Emergency (ER) | payer OTHER ==
[~2021-03-04] VITALS: Ht 182.9 cm; Wt 176.9 kg
[2021-03-04 11:25] VITALS: BP 141/63
== END 2021-03-04 11:25 | disposition home or self-care (01) ==
LOC: M.ERS 10:39
DX: S81.811A Laceration without foreign body, right lower leg, initial encounter (principal); X58.XXXA Exposure to other specified factors, initial encounter; Y93.89 Activity, other specified; Y92.89 Other specified places as the place of occurrence of the external cause; Y99.8 Other external cause status; E11.9 Type 2 diabetes mellitus without complications; Z90.49 Acquired absence of other specified parts of digestive tract

== ENCOUNTER → 2021-10-15 | Outpatient (CLI) | payer OTHER ==
[2021-10-15 08:43] LABS: ABSOLUTE BASOPHILS 0.1 thou/uL (0.0-0.2); ABSOLUTE EOSINOPHILS 0.2 thou/uL (0.0-0.7); ABSOLUTE LYMPHOCYTES 1.4 thou/uL (0.8-5.3); ABSOLUTE MONOCYTES 0.4 thou/uL (0.0-1.2); ABSOLUTE NEUTROPHILS 5.2 thou/uL (1.6-8.1); BASOPHILS 0.8 %; EOSINOPHILS 2.2 %; HEMATOCRIT 43.7 % (42.0-52.0); HEMOGLOBIN 14.2 gm/dL (14.0-18.0); LYMPHOCYTES 19.7 %; MCH 25.6 pg (26.0-34.0); MCHC 32.6 g/dL (28.0-37.0); MCV 78.4 fL (80.0-100.0); MONOCYTES 6.1 %; MPV 7.6 fl. (7.2-11.1); NUCLEATED RBCS 0 /100WBC; PLATELET COUNT* 276 thou/uL (150-400); POLYS 71.2 %; RBC 5.57 mil/uL (4.50-6.00); RDW-CV 15.7 % (10.5-14.5); WBC 7.3 thou/uL (4.0-11.0)
[2021-10-15 08:59] LABS: ALBUMIN 3.3 g/dL (3.4-5.0); ALKALINE PHOSPHATASE 130 U/L (46-116); ANION GAP 6 mmol/L (7-16); BUN 8 mg/dL (7-18); CALCIUM 8.3 mg/dL (8.5-10.1); CHLORIDE 101 mmol/L (98-107); CHOLESTEROL 121 mg/dL (<200); CO2 30 mmol/L (21-32); CREATININE 0.6 mg/dL (0.6-1.3); GLUCOSE 240 mg/dL (70-99); HDL CHOLESTEROL 27 mg/dL (>40); LDL CHOLESTEROL 80 mg/dL (<100); POTASSIUM 4.3 mmol/L (3.5-5.1); SGOT 28 U/L (15-37); SGPT 87 U/L (30-65); SODIUM 137 mmol/L (136-145); TC:HDL 4.5 Ratio (Not establshd); TOTAL BILIRUBIN 0.4 mg/dL (<0.1-1.0); TOTAL PROTEIN 6.8 g/dL (6.4-8.2); TRIGLYCERIDE 70 mg/dL (<150); VLDL 14 mg/dL (<40)
[2021-10-15 09:00] LABS: SERUM ASSESSMENT CL
[2021-10-17 07:35] LABS: GLYCOHEMOGLOBIN (HGB A1C) 10.4 % (4.8-5.6)
== END ==
LOC: M.LAB 08:20
PROVIDERS: ATTEND Nurse Practitioner Family
DX: Z00.01 Encounter for general adult medical examination with abnormal findings (principal); E11.65 Type 2 diabetes mellitus with hyperglycemia; E78.2 Mixed hyperlipidemia; R53.83 Other fatigue